=== PATIENT | female | born 1970 | race Caucasian/White ===

== ENCOUNTER 2019-03-30 20:00 | Emergency (ER) | payer SELFPAY ==
[~2019-03-30] VITALS: Ht 170.1 cm; Wt 96.2 kg
[~2019-03-30 20:00] MED LIST: ANAPROX DS550 MG PO; CIPRO500 MG PO; FIORICET 325 MG1 TAB PO; FLAGYL500 MG PO; HYDROCODONE BIT1 T11 PO; KENALOG0.5% TP; MEDROL DOSEPAK4 MG PO; MOTRIN800 MG PO; MULTI VITAMINS1 TAB PO; NKHM; NORFLEX100 MG PO; SKELAXIN800 MG PO; Synthroid,Levo25 MCG PO; VICODIN 5/500 505 MG PO; VISTARIL25 MG PO; ZANTAC150 MG PO; ZOFRAN ODT4 MG SL
[2019-03-30 20:06] VITALS: BP 131/65
[2019-03-30 20:38] LABS: BASO # 0.1 10*3/uL (0.0-0.1); BASO % 0.4 % (0.0-1.0); EOS # 0.1 10*3/uL (0.0-0.4); EOS % 0.8 % (1.0-4.0); HEMATOCRIT 41.9 % (37.0-47.0); HEMOGLOBIN 13.9 g/dl (12.0-16.0); LYMPH # 1.5 10*3/uL (1.3-4.4); LYMPH % 11.8 % (27.0-41.0); MEAN CELL VOLUME 89.9 fl (81.0-99.0); MEAN CORPUSCULAR HGB 29.8 pg (27.0-31.0); MEAN CORPUSCULAR HGB CONC 33.2 g/dl (33.0-37.0); MEAN PLATELET VOLUME 10.8 fl (9.6-12.3); MONO # 0.3 10*3/uL (0.1-1.0); NEUT # 10.5 10*3/uL (2.3-7.9); NEUT % 84.6 % (47.0-73.0); PLATELET COUNT AUTOMATED 218 10*3/uL (130-400); RED BLOOD COUNT 4.66 10*6/uL (4.10-5.10); RED CELL DISTRI WIDTH 13.5 % (0-14.5); WHITE BLOOD COUNT 12.4 10*3/uL (4.8-10.8)
[2019-03-30 20:52] LABS: ALBUMIN 3.7 gm/dl (3.1-4.5); ALKALINE PHOSPHATASE 115 U/L (45-117); BUN 10 mg/dl (7-24); CHLORIDE 105 mmol/L (98-107); CREATININE 0.89 mg/dL (0.55-1.02); LIPASE 106 U/L (73-393); POTASSIUM 3.8 mmol/L (3.5-5.1); SGOT/AST 15 IU/L (3-35); SGPT/ALT 20 U/L (12-78); SODIUM 137 mmol/L (136-145)
[2019-03-30 22:47] LABS: BILIRUBIN NEGATIVE (NEGATIVE); BLOOD NEGATIVE (NEGATIVE); CLARITY CLEAR (CLEAR); COLOR YELLOW (YELLOW); GLUCOSE NEGATIVE (NEGATIVE); KETONE NEGATIVE (NEGATIVE); LEUKO ESTERASE NEGATIVE (NEGATIVE); NITRITE NEGATIVE (NEGATIVE); PH 5.5 (5.0-9.0); UROBILINOGEN 0.2 E.U./dl (0.2-1.0)
[2019-03-30 23:01] LABS: BACTERIA 1+; EPITHELIAL CELLS 0-2
[2019-03-30] MEDS ORDERED: ZOFRAN4 MG PO (23:08)
[2019-03-30] MEDS ORDERED: AUGMENTIN 875875 MG PO (23:08)
[2019-03-30] MEDS ORDERED: TRAMADOL HCL50 MG PO (23:08)
== END 2019-03-30 23:50 | disposition home or self-care (01) ==
LOC: ED
PROVIDERS: Physician Assistant
DX: K57.32 Diverticulitis of large intestine without perforation or abscess without bleeding (principal); Z88.8 Allergy status to other drugs, medicaments and biological substances; Z79.899 Other long term (current) drug therapy; Z79.2 Long term (current) use of antibiotics

== ENCOUNTER 2019-04-01 17:56 | Inpatient (IN) | payer BC ==
[~2019-04-01] VITALS: Ht 167.6 cm; Wt 108.6 kg
--- NOTE | ~2019-04-01 | EKG ---
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
[~2019-04-01 17:56] MED LIST changes: +AUGMENTIN 875875 MG PO; +TRAMADOL HCL50 MG PO; +ZOFRAN4 MG PO
[2019-04-01 17:58] VITALS: BP 91/31
[2019-04-01 18:25] VITALS: BP 102/60
--- NOTE | 2019-04-01 18:49 | NUR ---
NURSE TO NURSE REPORT GIVEN TO THIS RN.
[2019-04-01 19:15] LABS: BASO % 0.7 % (0.0-1.0); EOS # 0.2 10*3/uL (0.0-0.4); EOS % 3.5 % (1.0-4.0); HEMATOCRIT 38.8 % (37.0-47.0); HEMOGLOBIN 12.4 g/dl (12.0-16.0); LYMPH # 1.4 10*3/uL (1.3-4.4); LYMPH % 26.3 % (27.0-41.0); MEAN CELL VOLUME 92.2 fl (81.0-99.0); MEAN CORPUSCULAR HGB 29.5 pg (27.0-31.0); MEAN PLATELET VOLUME 10.7 fl (9.6-12.3); MONO # 0.5 10*3/uL (0.1-1.0); MONO % 9.3 % (3.0-9.0); NEUT # 3.2 10*3/uL (2.3-7.9); NEUT % 59.6 % (47.0-73.0); PLATELET COUNT AUTOMATED 173 10*3/uL (130-400); RED BLOOD COUNT 4.21 10*6/uL (4.10-5.10); RED CELL DISTRI WIDTH 13.3 % (0-14.5); WHITE BLOOD COUNT 5.4 10*3/uL (4.8-10.8)
[2019-04-01 19:31] LABS: ALBUMIN 3.2 gm/dl (3.1-4.5); ALKALINE PHOSPHATASE 124 U/L (45-117); BUN 10 mg/dl (7-24); CHLORIDE 106 mmol/L (98-107); CREATININE 0.72 mg/dL (0.55-1.02); POTASSIUM 3.8 mmol/L (3.5-5.1); SGOT/AST 37 IU/L (3-35); SGPT/ALT 48 U/L (12-78); SODIUM 139 mmol/L (136-145); TOTAL PROTEIN 7.4 gm/dL (6.4-8.2)
[2019-04-01 20:56] LABS: INTERNATIONAL NORM RATIO 0.9 (2.0-3.5)
[2019-04-01 21:12] VITALS: BP 109/75
--- NOTE | 2019-04-01 21:12 | NUR ---
A 48, admitted to , under the services of TOMI Hickman DO with a diagnosis of BACTEREMIA, ACUTE DIVERTICULITIS. Chief complaint is BACTEREMIA, ACUTE DIVERTICULITIS. Patient arrived via stretcher from ER. Monitor applied. Initial assessment completed. Vital signs taken and recorded. TOMI HICKMAN DO notified of admission to the unit. Orders received. See assessment for past medical history, medications and allergies. Patient and/or family oriented to unit. [address] visitation policy reviewed. Clothing/patient valuable form completed. ETHEL DUVAL
[2019-04-01 21:14] VITALS: BP 108/63
[2019-04-02] VITALS: BP 100/77
--- NOTE | 2019-04-02 00:55 | NUR ---
PATIENT THROWING FREQUENT PVCS. STAT EKG ORDERED. NOTIFIED THE RESIDENT.
[2019-04-02 01:28] LABS: TROPONIN I < 0.015 ng/ml (<0.045)
[2019-04-02 06:58] LABS: BASO % 0.5 % (0.0-1.0); EOS # 0.3 10*3/uL (0.0-0.4); EOS % 5.4 % (1.0-4.0); HEMATOCRIT 35.6 % (37.0-47.0); HEMOGLOBIN 11.2 g/dl (12.0-16.0); LYMPH # 1.4 10*3/uL (1.3-4.4); MEAN CELL VOLUME 93.4 fl (81.0-99.0); MEAN CORPUSCULAR HGB 29.4 pg (27.0-31.0); MEAN CORPUSCULAR HGB CONC 31.5 g/dl (33.0-37.0); MEAN PLATELET VOLUME 10.9 fl (9.6-12.3); MONO # 0.4 10*3/uL (0.1-1.0); NEUT # 3.4 10*3/uL (2.3-7.9); NEUT % 60.7 % (47.0-73.0); PLATELET COUNT AUTOMATED 163 10*3/uL (130-400); RED BLOOD COUNT 3.81 10*6/uL (4.10-5.10); RED CELL DISTRI WIDTH 13.5 % (0-14.5); WHITE BLOOD COUNT 5.5 10*3/uL (4.8-10.8)
[2019-04-02 07:32] LABS: ALBUMIN 2.7 gm/dl (3.1-4.5); ALKALINE PHOSPHATASE 121 U/L (45-117); BUN 13 mg/dl (7-24); CHLORIDE 113 mmol/L (98-107); CHOLESTEROL 202 mg/dL (<200); CREATININE 0.72 mg/dL (0.55-1.02); HDL CHOLESTEROL 31 mg/dl (40-60); LDL CHOLESTEROL 125 mg/dL (9-159); PHOSPHOROUS 3.6 mg/dL (2.5-4.9); POTASSIUM 4.2 mmol/L (3.5-5.1); SGOT/AST 56 IU/L (3-35); SGPT/ALT 62 U/L (12-78); SODIUM 142 mmol/L (136-145); TOTAL PROTEIN 6.3 gm/dL (6.4-8.2); TRIGLYCERIDES 230 mg/dl (<150); VLDL CHOLESTEROL 46 mg/dL (6-40)
[2019-04-02 07:51] LABS: VITAMIN D, 25-HYDROXY 28.6 ng/mL (30-100)
[2019-04-02 08:00] VITALS: BP 110/70
--- NOTE | 2019-04-02 09:00 | NUR ---
Checkering Machine Adjuster in to talk to patient. Patient states lives at home with family. There are few steps in the home. Physician: justin mann [facility]acy: [facility] [place] [facility]: none Patient's level of ADLs: INDEPENDENT Patient has working utilities: all working DME: none Follow-up physician's appointment after d/c: will be made by hospitalist nurse director upon discharge Does patient want to access PORTAL?: no Discharge plan discussed with patient, she lives at home, is independent in adls and ambulation, patient states she will return home when medically stable and denies any home needs. RAJI ARVIZU
--- NOTE | 2019-04-02 09:02 | NUR ---
PT MEDICATED WITH ZOFRAN FOR C/O NAUSEA.
[2019-04-02 12:00] VITALS: BP 101/52
--- NOTE | 2019-04-02 12:21 | NUR ---
DR ANTONIO NOTIFIED OF NEW CONSULT ORDER.
[2019-04-02 16:00] VITALS: BP 115/68
--- NOTE | 2019-04-02 17:07 | NUR ---
& AMADO CRIMPING PRESS OPERATOR NOTIFIED OF NEW SKIN TEAR TO LEFT AC AFTER PT PULLED OFF PAPER TAPE. SAID HE WOULD PUT ORDERS IN. SEE WOUND ASSESSMENT/ORDERS.
[2019-04-02 20:00] VITALS: BP 105/56
--- NOTE | 2019-04-02 20:41 | NUR ---
NO VOICED COMPLAINTS. VISITOR AT BEDSIDE. CALL LIGHT IN REACH. IVF INFUSING WITH EASE.
--- NOTE | 2019-04-02 23:30 | NUR ---
ASSUMED CARE FOR THIS PT AT THIS TIME. PT RESTING QUIETLY IN BED. NO C/O VOICED. IVF INFUSING ORDERED. CALL LIGHT IN REACH.
[2019-04-03] VITALS: BP 104/60
--- NOTE | 2019-04-03 02:34 | NUR ---
PT MEDICATED W/NORCO FOR C/O H/A AND ZOFRAN FOR C/O NAUSEA. RESTING QUIETLY IN BED.
--- NOTE | 2019-04-03 03:30 | NUR ---
PT STATES THAT NORCO AND ZOFRAN WERE EFFECTIVE. NO FURHTER C/O VOICED.
--- NOTE | 2019-04-03 03:40 | NUR ---
24 HR chart check completed.
[2019-04-03 07:06] LABS: BASO % 0.6 % (0.0-1.0); EOS # 0.3 10*3/uL (0.0-0.4); EOS % 5.8 % (1.0-4.0); HEMATOCRIT 33.8 % (37.0-47.0); HEMOGLOBIN 10.7 g/dl (12.0-16.0); LYMPH # 2.1 10*3/uL (1.3-4.4); LYMPH % 39.7 % (27.0-41.0); MEAN CELL VOLUME 92.6 fl (81.0-99.0); MEAN CORPUSCULAR HGB 29.3 pg (27.0-31.0); MEAN CORPUSCULAR HGB CONC 31.7 g/dl (33.0-37.0); MEAN PLATELET VOLUME 10.9 fl (9.6-12.3); MONO # 0.3 10*3/uL (0.1-1.0); MONO % 6.3 % (3.0-9.0); NEUT # 2.5 10*3/uL (2.3-7.9); PLATELET COUNT AUTOMATED 173 10*3/uL (130-400); RED BLOOD COUNT 3.65 10*6/uL (4.10-5.10); RED CELL DISTRI WIDTH 13.5 % (0-14.5); WHITE BLOOD COUNT 5.4 10*3/uL (4.8-10.8)
[2019-04-03 07:16] LABS: ALBUMIN 2.8 gm/dl (3.1-4.5); BUN 9 mg/dl (7-24); CHLORIDE 110 mmol/L (98-107); POTASSIUM 3.9 mmol/L (3.5-5.1); SODIUM 141 mmol/L (136-145)
[2019-04-03 07:20] LABS: ALKALINE PHOSPHATASE 121 U/L (45-117); CREATININE 0.69 mg/dL (0.55-1.02); SGOT/AST 34 IU/L (3-35); SGPT/ALT 64 U/L (12-78); TOTAL PROTEIN 6.3 gm/dL (6.4-8.2)
[2019-04-03 08:00] VITALS: BP 120/68
[2019-04-03] MEDS ORDERED: VITAMIN D32000 UNI1 PO (11:29)
[2019-04-03] MEDS ORDERED: LIPITOR10 MG PO (11:30)
[2019-04-03] MEDS ORDERED: AUGMENTIN 875875 MG PO (11:32)
--- NOTE | 2019-04-03 11:40 | NUR ---
MEDICATED WITH PRN PO TYLENOL FOR HEADACHE.
--- NOTE | 2019-04-03 12:29 | NUR ---
Discharge instructions reviewed with patient. Patient receptive and verbalizes understanding. Follow-up care arranged. Written instructions given to patient. PATIENT AWAITING RIDE HOME WITH SON. SAIRA MAYA
--- NOTE | 2019-04-03 12:45 | NUR ---
PATIENT DISCHARGED TO [facility], AMBULATORY, FOR TRANSPORT HOME BY PRIVATE VEHICLE WITH HER SON.
== END 2019-04-03 12:14 | disposition home or self-care (01) | DRG 392 ==
LOC: ED 17:56 → 5E 20:18 → EDHOLD 20:18 → 5E 20:43
PROVIDERS: Internal Medicine; Physician Assistant; Student in an Organized Health Care Education/Training Program; ADMIT Internal Medicine
DX: K57.32 Diverticulitis of large intestine without perforation or abscess without bleeding (principal); D72.810 Lymphocytopenia; D72.821 Monocytosis (symptomatic); K76.0 Fatty (change of) liver, not elsewhere classified; E78.5 Hyperlipidemia, unspecified; E66.9 Obesity, unspecified; Z87.891 Personal history of nicotine dependence; Z98.51 Tubal ligation status; Z79.899 Other long term (current) drug therapy; Z68.38 Body mass index [BMI] 38.0-38.9, adult; Z88.8 Allergy status to other drugs, medicaments and biological substances; Z83.3 Family history of diabetes mellitus; Z80.8 Family history of malignant neoplasm of other organs or systems; Z82.3 Family history of stroke; Z82.49 Family history of ischemic heart disease and other diseases of the circulatory system

== ENCOUNTER → 2019-09-17 | Outpatient (CLI) | payer BC ==
[~2019-09-17] MED LIST changes: +LIPITOR10 MG PO; +VITAMIN D32000 UNI1 PO
== END | disposition home or self-care (01) ==
LOC: CARD 07:42
DX: I25.2 Old myocardial infarction (principal); R00.2 Palpitations; I49.9 Cardiac arrhythmia, unspecified

== ENCOUNTER → 2019-11-16 | Outpatient (CLI) | payer BC | END | disposition home or self-care (01) | LOC: CARD 11:28 | DX: R00.2 Palpitations (principal) ==

== ENCOUNTER → 2019-12-31 | Outpatient (CLI) | payer BC ==
[2020-01-01 08:08] LABS: FOLLICLE STIMULATING HORMONE 43.4 mIU/mL (.); LUTEINIZING HORMONE 29.4 mIU/mL (.)
== END | disposition home or self-care (01) ==
LOC: US 12-20 11:00
PROVIDERS: Obstetrics & Gynecology
DX: N95.0 Postmenopausal bleeding (principal)

== ENCOUNTER 2020-02-11 15:40 | Observation (INO) | payer BC ==
[~2020-02-11] VITALS: Ht 170.2 cm; Wt 108.9 kg
[2020-02-11 15:46] VITALS: BP 135/75
[2020-02-11 16:09] LABS: BASO % 0.4 % (0.0-1.0); EOS # 0.1 10*3/uL (0.0-0.4); HEMATOCRIT 41.2 % (37.0-47.0); LYMPH # 2.4 10*3/uL (1.3-4.4); LYMPH % 22.9 % (27.0-41.0); MEAN CELL VOLUME 89.4 fl (81.0-99.0); MEAN CORPUSCULAR HGB 29.5 pg (27.0-31.0); MEAN PLATELET VOLUME 10.3 fl (9.6-12.3); MONO # 0.4 10*3/uL (0.1-1.0); MONO % 4.1 % (3.0-9.0); NEUT # 7.5 10*3/uL (2.3-7.9); NEUT % 71.3 % (47.0-73.0); PLATELET COUNT AUTOMATED 251 10*3/uL (130-400); RED BLOOD COUNT 4.61 10*6/uL (4.10-5.10); RED CELL DISTRI WIDTH 12.6 % (0-14.5); WHITE BLOOD COUNT 10.5 10*3/uL (4.8-10.8)
[2020-02-11 16:19] VITALS: BP 122/62
[2020-02-11 16:20] LABS: ACT PARTIAL THROMBO TIME 27.5 SECONDS (20.0-32.1)
[2020-02-11 16:25] LABS: ALBUMIN 3.9 gm/dl (3.1-4.5); ALKALINE PHOSPHATASE 125 U/L (45-117); BUN 18 mg/dl (7-24); CHLORIDE 104 mmol/L (98-107); POTASSIUM 3.7 mmol/L (3.5-5.1); SGOT/AST 22 IU/L (3-35); SGPT/ALT 26 U/L (12-78); SODIUM 136 mmol/L (136-145); TOTAL PROTEIN 8.2 gm/dL (6.4-8.2)
[2020-02-11 16:26] LABS: TROPONIN I < 0.015 ng/ml (<0.045)
[2020-02-11 16:30] VITALS: BP 122/62
[2020-02-11 17:00] VITALS: BP 113/60
[2020-02-11 17:30] VITALS: BP 107/51
[2020-02-11 18:15] VITALS: BP 115/60
[2020-02-11] MEDS ORDERED: LEXAPRO10 MG PO (18:18)
[2020-02-11] MEDS ORDERED: LISINOPRIL10 M1 PO (18:19)
[2020-02-11] MEDS ORDERED: PRILOSEC20 M1 PO (18:19)
[2020-02-11] MEDS ORDERED: ZINC50 M4 PO (18:20)
[2020-02-11] MEDS ORDERED: VITAMIN C500 M7 PO (18:20)
[2020-02-11] MEDS ORDERED: ASPIRIN CHEWABL81 MG PO (18:21)
[2020-02-11] MEDS ORDERED: SUNMARK MAGNES250 MG PO (18:21)
[2020-02-12] VITALS: BP 109/65
[2020-02-12 06:06] LABS: BASO % 0.4 % (0.0-1.0); EOS # 0.2 10*3/uL (0.0-0.4); HEMATOCRIT 39.8 % (37.0-47.0); LYMPH # 3.4 10*3/uL (1.3-4.4); LYMPH % 37.2 % (27.0-41.0); MEAN CELL VOLUME 90.7 fl (81.0-99.0); MEAN CORPUSCULAR HGB 29.4 pg (27.0-31.0); MEAN CORPUSCULAR HGB CONC 32.4 g/dl (33.0-37.0); MEAN PLATELET VOLUME 10.6 fl (9.6-12.3); MONO # 0.5 10*3/uL (0.1-1.0); MONO % 5.8 % (3.0-9.0); NEUT % 54.3 % (47.0-73.0); PLATELET COUNT AUTOMATED 243 10*3/uL (130-400); RED BLOOD COUNT 4.39 10*6/uL (4.10-5.10); RED CELL DISTRI WIDTH 12.6 % (0-14.5); WHITE BLOOD COUNT 9.1 10*3/uL (4.8-10.8)
[2020-02-12 06:27] LABS: ALBUMIN 3.6 gm/dl (3.1-4.5); BUN 19 mg/dl (7-24); CHLORIDE 105 mmol/L (98-107); CHOLESTEROL 174 mg/dL (<200); CREATININE 0.78 mg/dL (0.55-1.02); POTASSIUM 3.8 mmol/L (3.5-5.1); SGOT/AST 12 IU/L (3-35); SGPT/ALT 22 U/L (12-78); SODIUM 138 mmol/L (136-145)
[2020-02-12 06:33] LABS: ALKALINE PHOSPHATASE 115 U/L (45-117); FREE T4 1.04 ng/dl (0.76-1.46); HDL CHOLESTEROL 42 mg/dl (40-60); LDL CHOLESTEROL 86 mg/dL (9-159); TOTAL PROTEIN 7.5 gm/dL (6.4-8.2); TRIGLYCERIDES 229 mg/dl (<150); VLDL CHOLESTEROL 46 mg/dL (6-40)
[2020-02-12 06:51] LABS: ACT PARTIAL THROMBO TIME 28.9 SECONDS (20.0-32.1)
[2020-02-12 07:28] LABS: VITAMIN D, 25-HYDROXY 43.2 ng/mL (30-100)
[2020-02-12] MEDS ORDERED: LIPITOR20 MG PO (10:33)
[2020-02-12 12:00] VITALS: BP 105/59
[2020-02-12 16:00] VITALS: BP 110/66
[2020-02-12 20:00] VITALS: BP 102/66
[2020-02-13] VITALS: BP 97/55
[2020-02-13 08:00] VITALS: BP 132/76
[2020-02-13 12:00] VITALS: BP 106/72
[2020-02-13 16:00] VITALS: BP 103/61
[2020-02-13 20:00] VITALS: BP 116/65
[2020-02-14] VITALS: BP 112/47
[2020-02-14 10:35] VITALS: BP 122/60
== END 2020-02-14 18:00 | disposition home or self-care (01) ==
LOC: ED 15:40 → EDHOLD 17:12 → 4E 17:48
PROVIDERS: Emergency Medicine; Hospitalist; ADMIT Internal Medicine
DX: R07.89 Other chest pain (principal); E78.5 Hyperlipidemia, unspecified; E83.41 Hypermagnesemia; R00.1 Bradycardia, unspecified; R73.9 Hyperglycemia, unspecified; E66.9 Obesity, unspecified; R42 Dizziness and giddiness; F41.9 Anxiety disorder, unspecified; Z87.891 Personal history of nicotine dependence

== ENCOUNTER → 2020-09-18 | Outpatient (CLI) | payer BC ==
[~2020-09-18] MED LIST changes: +ASPIRIN CHEWABL81 MG PO; +LEXAPRO10 MG PO; +LIPITOR20 MG PO; +LISINOPRIL10 M1 PO; +PRILOSEC20 M1 PO; +SUNMARK MAGNES250 MG PO; +VITAMIN C500 M7 PO; +ZINC50 M4 PO
== END | disposition home or self-care (01) ==
LOC: COVID19 13:18
PROVIDERS: ATTEND Internal Medicine Gastroenterology
DX: Z11.52 Encounter for screening for COVID-19 (principal)

== ENCOUNTER → 2020-11-06 | Outpatient (CLI) | payer BC | END | disposition home or self-care (01) | LOC: MAMMO 09:26 | PROVIDERS: ATTEND Obstetrics & Gynecology | DX: Z12.31 Encounter for screening mammogram for malignant neoplasm of breast (principal) ==

== ENCOUNTER → 2020-11-22 | Outpatient (CLI) | payer BC | END | disposition home or self-care (01) | LOC: US 14:58 | PROVIDERS: ATTEND Nurse Practitioner Family | DX: M51.36 Other intervertebral disc degeneration, lumbar region (principal); M51.37 Other intervertebral disc degeneration, lumbosacral region; M25.78 Osteophyte, vertebrae ==

== ENCOUNTER 2021-02-24 13:08 | Emergency (ER) | payer BC ==
[~2021-02-24] VITALS: Ht 167.6 cm; Wt 113.4 kg
[2021-02-24 13:22] VITALS: BP 131/81
[2021-02-24 14:00] LABS: BASO % 0.3 % (0.0-1.0); EOS # 0.2 10*3/uL (0.0-0.4); EOS % 1.9 % (1.0-4.0); HEMATOCRIT 39.9 % (37.0-47.0); LYMPH # 2.4 10*3/uL (1.3-4.4); LYMPH % 27.3 % (27.0-41.0); MEAN CELL VOLUME 90.9 fl (81.0-99.0); MEAN CORPUSCULAR HGB 28.5 pg (27.0-31.0); MEAN CORPUSCULAR HGB CONC 31.3 g/dl (33.0-37.0); MEAN PLATELET VOLUME 10.5 fl (9.6-12.3); MONO # 0.5 10*3/uL (0.1-1.0); NEUT # 5.7 10*3/uL (2.3-7.9); NEUT % 63.7 % (47.0-73.0); PLATELET COUNT AUTOMATED 242 10*3/uL (130-400); RED BLOOD COUNT 4.39 10*6/uL (4.10-5.10); RED CELL DISTRI WIDTH 13.2 % (0-14.5); WHITE BLOOD COUNT 8.9 10*3/uL (4.8-10.8)
[2021-02-24 14:16] LABS: ALBUMIN 3.5 gm/dl (3.1-4.5); ALKALINE PHOSPHATASE 124 U/L (45-117); BUN 10 mg/dl (7-24); CHLORIDE 109 mmol/L (98-107); CREATININE 0.76 mg/dL (0.55-1.02); POTASSIUM 4.6 mmol/L (3.5-5.1); SGOT/AST 30 IU/L (3-35); SGPT/ALT 31 U/L (12-78); SODIUM 141 mmol/L (136-145); TOTAL PROTEIN 7.6 gm/dL (6.4-8.2)
[2021-02-24 15:15] LABS: BILIRUBIN Negative (Negative); BLOOD Negative (Negative); CLARITY Clear (Clear); COLOR Yellow (Yellow); GLUCOSE Negative (Negative); KETONE Negative (Negative); LEUKO ESTERASE 2+ (Negative); NITRITE Negative (Negative); PH 7.5 (4.5-8.0); SPECIFIC GRAVITY <= 1.005 (1.001-1.030); UROBILINOGEN 0.2 E.U./dl (0.0-1.0)
[2021-02-24 15:41] LABS: BACTERIA 1+; EPITHELIAL CELLS 41-50; RBC 0-2 rbc/hpf (0-2)
[2021-02-24] MEDS ORDERED: AUGMENTIN 875-875 MG PO (15:49)
== END 2021-02-24 16:18 | disposition home or self-care (01) ==
LOC: ED 13:08
PROVIDERS: Student in an Organized Health Care Education/Training Program
DX: N39.0 Urinary tract infection, site not specified (principal); N20.0 Calculus of kidney; Z88.8 Allergy status to other drugs, medicaments and biological substances; Z79.899 Other long term (current) drug therapy; Z79.82 Long term (current) use of aspirin; Z98.51 Tubal ligation status; Z87.891 Personal history of nicotine dependence

== ENCOUNTER → 2021-03-06 | Outpatient (CLI) | payer BC ==
[~2021-03-06] MED LIST changes: +AUGMENTIN 875-875 MG PO
== END | disposition home or self-care (01) ==
LOC: CT 00:09
PROVIDERS: ATTEND Nurse Practitioner Family
DX: K76.0 Fatty (change of) liver, not elsewhere classified (principal); N20.0 Calculus of kidney; K57.30 Diverticulosis of large intestine without perforation or abscess without bleeding

== ENCOUNTER → 2021-06-20 | Outpatient (CLI) | payer BC ==
[~2021-06-20] MED LIST changes: +FLOMAX0.4 MG PO; +Motrin,Rufen800 MG PO; +PERCOCET 5-3251 EACH PO
== END | disposition home or self-care (01) ==
LOC: RAD 13:56
PROVIDERS: ATTEND Urology
DX: R10.9 Unspecified abdominal pain (principal); R07.81 Pleurodynia

== ENCOUNTER 2021-06-25 07:31 | Emergency (ER) | payer BC ==
[~2021-06-25] VITALS: Ht 170.1 cm; Wt 108.9 kg
[~2021-06-25 07:31] MED LIST changes: -FLOMAX0.4 MG PO; -Motrin,Rufen800 MG PO; -PERCOCET 5-3251 EACH PO
[2021-06-25 08:41] LABS: BASO % 0.3 % (0.0-1.0); EOS # 0.1 10*3/uL (0.0-0.4); EOS % 0.7 % (1.0-4.0); LYMPH % 21.7 % (27.0-41.0); MEAN CELL VOLUME 91.1 fl (81.0-99.0); MEAN CORPUSCULAR HGB CONC 31.8 g/dl (33.0-37.0); MEAN PLATELET VOLUME 10.6 fl (9.6-12.3); MONO # 0.4 10*3/uL (0.1-1.0); MONO % 4.1 % (3.0-9.0); NEUT # 6.6 10*3/uL (2.3-7.9); NEUT % 72.5 % (47.0-73.0); PLATELET COUNT AUTOMATED 196 10*3/uL (130-400); RED BLOOD COUNT 4.28 10*6/uL (4.10-5.10); RED CELL DISTRI WIDTH 12.8 % (0-14.5); WHITE BLOOD COUNT 9.1 10*3/uL (4.8-10.8)
[2021-06-25 08:59] LABS: ALBUMIN 3.4 gm/dl (3.1-4.5); ALKALINE PHOSPHATASE 113 U/L (45-117); BUN 13 mg/dl (7-24); CHLORIDE 109 mmol/L (98-107); CREATININE 0.86 mg/dL (0.55-1.02); LIPASE 102 U/L (73-393); POTASSIUM 3.6 mmol/L (3.5-5.1); SGOT/AST 11 IU/L (3-35); SGPT/ALT 25 U/L (12-78); SODIUM 141 mmol/L (136-145); TOTAL PROTEIN 7.4 gm/dL (6.4-8.2)
[2021-06-25 10:30] VITALS: BP 110/80
[2021-06-25 11:30] LABS: BILIRUBIN Negative (Negative); BLOOD 3+ (Negative); CLARITY Clear (Clear); COLOR Yellow (Yellow); GLUCOSE Negative (Negative); KETONE Negative (Negative); LEUKO ESTERASE Trace (Negative); NITRITE Negative (Negative); SPECIFIC GRAVITY 1.015 (1.001-1.030); UROBILINOGEN 0.2 E.U./dl (0.0-1.0)
[2021-06-25 11:42] LABS: BACTERIA 1+; MUCOUS 2+; RBC TNTC rbc/hpf (0-2)
[2021-06-25] MEDS ORDERED: Motrin,Rufen800 MG PO (11:55)
[2021-06-25] MEDS ORDERED: ZOFRAN4 MG PO (11:55)
[2021-06-25] MEDS ORDERED: PERCOCET 5-3251 EACH PO (11:55)
[2021-06-25] MEDS ORDERED: FLOMAX0.4 MG PO (11:55)
== END 2021-06-25 11:59 | disposition home or self-care (01) ==
LOC: ED 07:31
PROVIDERS: Emergency Medicine
DX: N20.1 Calculus of ureter (principal); Z88.8 Allergy status to other drugs, medicaments and biological substances; Z79.899 Other long term (current) drug therapy; Z87.891 Personal history of nicotine dependence

== ENCOUNTER → 2021-12-12 | Outpatient (CLI) | payer BC, OTHER ==
[~2021-12-12] MED LIST changes: +FLOMAX0.4 MG PO; +Motrin,Rufen800 MG PO; +PERCOCET 5-3251 EACH PO
[2021-12-12 07:41] LABS: BASO % 0.3 % (0.0-1.0); EOS # 0.2 10*3/uL (0.0-0.4); EOS % 2.7 % (1.0-4.0); HEMATOCRIT 39.5 % (37.0-47.0); LYMPH % 39.6 % (27.0-41.0); MEAN CELL VOLUME 90.8 fl (81.0-99.0); MEAN CORPUSCULAR HGB 28.7 pg (27.0-31.0); MEAN CORPUSCULAR HGB CONC 31.6 g/dl (33.0-37.0); MEAN PLATELET VOLUME 9.8 fl (9.6-12.3); MONO # 0.4 10*3/uL (0.1-1.0); MONO % 5.4 % (3.0-9.0); NEUT # 3.9 10*3/uL (2.3-7.9); NEUT % 51.6 % (47.0-73.0); PLATELET COUNT AUTOMATED 232 10*3/uL (130-400); RED BLOOD COUNT 4.35 10*6/uL (4.10-5.10); RED CELL DISTRI WIDTH 12.9 % (0-14.5); WHITE BLOOD COUNT 7.5 10*3/uL (4.8-10.8)
[2021-12-12 08:51] LABS: BUN 12 mg/dl (7-24); CHLORIDE 108 mmol/L (98-107); CHOLESTEROL 171 mg/dL (<200); CREATININE 0.75 mg/dL (0.55-1.02); POTASSIUM 4.2 mmol/L (3.5-5.1); SGOT/AST 13 IU/L (3-35); SGPT/ALT 24 U/L (12-78); SODIUM 140 mmol/L (136-145); TRIGLYCERIDES 142 mg/dl (<150)
[2021-12-12 08:52] LABS: ALKALINE PHOSPHATASE 87 U/L (45-117); LDL CHOLESTEROL 91 mg/dL (9-159); TOTAL PROTEIN 6.7 gm/dL (6.4-8.2)
== END | disposition home or self-care (01) ==
LOC: LAB 07:16
PROVIDERS: ATTEND Nurse Practitioner Family
DX: E78.2 Mixed hyperlipidemia (principal)

== ENCOUNTER → 2022-01-28 | Day surgery (SDC) | payer BC, OTHER ==
[~2022-01-28] VITALS: Ht 167.6 cm; Wt 111.1 kg
[~2022-01-28] MED LIST changes: +DAILY VALUE1 EACH PO; +PANTOPRAZOLE SO40 MG PO
[2022-01-28 08:05] VITALS: BP 117/69
[2022-01-28 09:08] VITALS: BP 104/63
[2022-01-28 09:23] VITALS: BP 109/64
[2022-01-28 09:37] VITALS: BP 108/69
[2022-01-28 10:40] VITALS: BP 104/63
== END | disposition home or self-care (01) ==
LOC: SDC 01-24 11:00
PROVIDERS: ATTEND Surgery
DX: K21.9 Gastro-esophageal reflux disease without esophagitis (principal); K29.50 Unspecified chronic gastritis without bleeding; I25.2 Old myocardial infarction; E78.00 Pure hypercholesterolemia, unspecified; Z86.73 Personal history of transient ischemic attack (TIA), and cerebral infarction without residual deficits; Z88.1 Allergy status to other antibiotic agents

== ENCOUNTER → 2022-02-12 | Outpatient (CLI) | payer BC, OTHER | END | disposition home or self-care (01) | LOC: US 01-10 07:30 | PROVIDERS: ATTEND Nurse Practitioner Family | DX: I83.91 Asymptomatic varicose veins of right lower extremity (principal); M76.61 Achilles tendinitis, right leg ==

== ENCOUNTER → 2022-05-28 | Outpatient (CLI) | payer BC, OTHER ==
[2022-05-29 08:07] LABS: FOLLICLE STIMULATING HORMONE 18.5 mIU/mL (.)
== END | disposition home or self-care (01) ==
LOC: LAB 07:17
PROVIDERS: ATTEND Nurse Practitioner Women's Health
DX: N95.0 Postmenopausal bleeding (principal); R10.2 Pelvic and perineal pain

== ENCOUNTER → 2022-06-05 | Outpatient (CLI) | payer BC, OTHER | END | disposition home or self-care (01) | LOC: CARD 00:02 | PROVIDERS: ATTEND Internal Medicine | DX: R06.09 Other forms of dyspnea (principal) ==

== ENCOUNTER → 2023-03-05 | Outpatient (CLI) | payer BC, OTHER | END | disposition home or self-care (01) | LOC: MAMMO 02:20 | PROVIDERS: ATTEND Nurse Practitioner Women's Health | DX: Z12.31 Encounter for screening mammogram for malignant neoplasm of breast (principal) ==

== ENCOUNTER → 2023-03-11 | Outpatient (CLI) | payer BC, OTHER ==
[2023-03-11 07:19] LABS: BASO % 0.3 % (0.0-1.0); EOS # 0.1 10*3/uL (0.0-0.4); EOS % 1.7 % (1.0-4.0); HEMATOCRIT 40.3 % (37.0-47.0); LYMPH # 2.2 10*3/uL (1.3-4.4); LYMPH % 33.9 % (27.0-41.0); MEAN CELL VOLUME 91.8 fl (81.0-99.0); MEAN CORPUSCULAR HGB 30.3 pg (27.0-31.0); MEAN PLATELET VOLUME 10.2 fl (9.6-12.3); MONO # 0.4 10*3/uL (0.1-1.0); MONO % 5.3 % (3.0-9.0); NEUT # 3.9 10*3/uL (2.3-7.9); NEUT % 58.3 % (47.0-73.0); PLATELET COUNT AUTOMATED 200 10*3/uL (130-400); RED BLOOD COUNT 4.39 10*6/uL (4.10-5.10); RED CELL DISTRI WIDTH 12.7 % (0-14.5); WHITE BLOOD COUNT 6.6 10*3/uL (4.8-10.8)
[2023-03-11 07:55] LABS: VITAMIN D, 25-HYDROXY 57.2 ng/mL (30-100)
[2023-03-11 07:58] LABS: ALKALINE PHOSPHATASE 109 U/L (46-116); BUN 13 mg/dl (9-23); CHLORIDE 107 mmol/L (98-107); CHOLESTEROL 173 mg/dL (<200); LDL CHOLESTEROL 82 mg/dL (9-159); SGPT/ALT 13 U/L (10-49); TOTAL PROTEIN 7.1 gm/dL (6.0-8.0); TRIGLYCERIDES 180 mg/dl (<150)
== END | disposition home or self-care (01) ==
LOC: LAB 07:03
PROVIDERS: ATTEND Nurse Practitioner Family
DX: H93.19 Tinnitus, unspecified ear (principal); R51.9 Headache, unspecified; G47.30 Sleep apnea, unspecified; Z86.73 Personal history of transient ischemic attack (TIA), and cerebral infarction without residual deficits; Z82.49 Family history of ischemic heart disease and other diseases of the circulatory system

== ENCOUNTER → 2023-03-12 | Outpatient (CLI) | payer BC, OTHER | END | disposition home or self-care (01) | LOC: CARD 13:28 | PROVIDERS: ATTEND Nurse Practitioner Family | DX: G47.30 Sleep apnea, unspecified (principal); H93.19 Tinnitus, unspecified ear; R51.9 Headache, unspecified; Z82.49 Family history of ischemic heart disease and other diseases of the circulatory system; Z86.73 Personal history of transient ischemic attack (TIA), and cerebral infarction without residual deficits ==

== ENCOUNTER → 2023-05-09 | Outpatient (CLI) | payer BC, OTHER | END | disposition home or self-care (01) | LOC: MRI 07:08 | PROVIDERS: ATTEND Nurse Practitioner Family | DX: I67.82 Cerebral ischemia (principal); Z82.49 Family history of ischemic heart disease and other diseases of the circulatory system; H93.19 Tinnitus, unspecified ear; Z86.73 Personal history of transient ischemic attack (TIA), and cerebral infarction without residual deficits ==

== ENCOUNTER → 2023-08-27 | Outpatient (CLI) | payer BC ==
[2023-08-27 07:53] LABS: BASO % 0.6 % (0.0-1.0); EOS # 0.1 10*3/uL (0.0-0.4); EOS % 2.1 % (1.0-4.0); HEMATOCRIT 41.1 % (37.0-47.0); LYMPH # 2.4 10*3/uL (1.3-4.4); LYMPH % 38.2 % (27.0-41.0); MEAN CELL VOLUME 92.8 fl (81.0-99.0); MEAN CORPUSCULAR HGB 29.6 pg (27.0-31.0); MEAN CORPUSCULAR HGB CONC 31.9 g/dl (33.0-37.0); MEAN PLATELET VOLUME 10.2 fl (9.6-12.3); MONO # 0.4 10*3/uL (0.1-1.0); NEUT # 3.3 10*3/uL (2.3-7.9); NEUT % 52.9 % (47.0-73.0); PLATELET COUNT AUTOMATED 226 10*3/uL (130-400); RED BLOOD COUNT 4.43 10*6/uL (4.10-5.10); RED CELL DISTRI WIDTH 12.7 % (0-14.5); WHITE BLOOD COUNT 6.2 10*3/uL (4.8-10.8)
[2023-08-27 08:28] LABS: ALKALINE PHOSPHATASE 110 U/L (46-116); BUN 8 mg/dl (9-23); CHLORIDE 108 mmol/L (98-107); CHOLESTEROL 171 mg/dL (<200); LDL CHOLESTEROL 82 mg/dL (9-159); POTASSIUM 4.1 mmol/L (3.4-5.1); SGPT/ALT 11 U/L (5-49); TOTAL PROTEIN 6.9 gm/dL (6.0-8.0); TRIGLYCERIDES 164 mg/dl (<150)
== END | disposition home or self-care (01) ==
LOC: LAB 07:04
PROVIDERS: ATTEND Nurse Practitioner Family
DX: E78.2 Mixed hyperlipidemia (principal); F41.9 Anxiety disorder, unspecified; F43.9 Reaction to severe stress, unspecified

== ENCOUNTER → 2023-11-11 | Outpatient (CLI) | payer OTHER | END | disposition home or self-care (01) | LOC: LAB 07:22 | PROVIDERS: ATTEND Nurse Practitioner Family | DX: F41.1 Generalized anxiety disorder (principal); E66.9 Obesity, unspecified; Z78.0 Asymptomatic menopausal state ==

== ENCOUNTER → 2023-11-19 | Outpatient (CLI) | payer OTHER ==
[2023-11-20 13:07] LABS: ANTI-DSDNA ANTIBODIES <1 IU/mL (0-9); ANTI-RNP ANTIBODIES 2.5 AI (0.0-0.9); ANTICHROMATIN ANTIBODIES <0.2 AI (0.0-0.9); ANTISCLERODERMA-70 AB <0.2 AI (0.0-0.9); SJOGREN ANTI-SS-A <0.2 AI (0.0-0.9); SJOREN AB, ANTI-SS-B <0.2 AI (0.0-0.9)
== END ==
LOC: LAB 11:34
PROVIDERS: ATTEND Nurse Practitioner Family
DX: R76.8 Other specified abnormal immunological findings in serum (principal)

== ENCOUNTER → 2024-02-19 | Outpatient (CLI) | payer OTHER ==
[2024-02-19 07:25] LABS: BASO % 0.5 % (0.0-1.0); EOS # 0.1 10*3/uL (0.0-0.4); EOS % 1.9 % (1.0-4.0); HEMATOCRIT 38.7 % (37.0-47.0); LYMPH # 2.2 10*3/uL (1.3-4.4); LYMPH % 33.9 % (27.0-41.0); MEAN CELL VOLUME 91.1 fl (81.0-99.0); MEAN CORPUSCULAR HGB 30.8 pg (27.0-31.0); MEAN CORPUSCULAR HGB CONC 33.9 g/dl (33.0-37.0); MEAN PLATELET VOLUME 10.5 fl (9.6-12.3); MONO # 0.4 10*3/uL (0.1-1.0); MONO % 6.4 % (3.0-9.0); NEUT # 3.6 10*3/uL (2.3-7.9); NEUT % 56.8 % (47.0-73.0); PLATELET COUNT AUTOMATED 201 10*3/uL (130-400); RED BLOOD COUNT 4.25 10*6/uL (4.10-5.10); RED CELL DISTRI WIDTH 12.8 % (0-14.5); WHITE BLOOD COUNT 6.4 10*3/uL (4.8-10.8)
[2024-02-19 07:49] LABS: ALKALINE PHOSPHATASE 122 U/L (46-116); BUN 12 mg/dl (9-23); CHLORIDE 106 mmol/L (98-107); CHOLESTEROL 174 mg/dL (<200); LDL CHOLESTEROL 85 mg/dL (9-159); POTASSIUM 4.2 mmol/L (3.4-5.1); SGPT/ALT 12 U/L (5-49); TRIGLYCERIDES 165 mg/dl (<150)
[2024-02-19 08:29] LABS: VITAMIN D, 25-HYDROXY 44.1 ng/mL (30-100)
[2024-02-22 15:06] LABS: TESTOSTERONE FREE, (DIRECT) 1.1 pg/mL (0.0-4.2)
== END | disposition home or self-care (01) ==
LOC: LAB 07:01
PROVIDERS: ATTEND Nurse Practitioner Family
DX: R63.5 Abnormal weight gain (principal); E78.2 Mixed hyperlipidemia; Z78.0 Asymptomatic menopausal state

== ENCOUNTER → 2024-03-01 | Outpatient (CLI) | payer OTHER ==
[2024-03-01 17:15] LABS: BILIRUBIN Negative (Negative); BLOOD Negative (Negative); CLARITY Clear (Clear); COLOR Yellow (Yellow); GLUCOSE Negative (Negative); KETONE Negative (Negative); LEUKO ESTERASE Negative (Negative); NITRITE Negative (Negative); UROBILINOGEN 0.2 E.U./dl (0.0-1.0)
[2024-03-01 17:23] LABS: BASO % 0.3 % (0.0-1.0); EOS # 0.1 10*3/uL (0.0-0.4); EOS % 1.4 % (1.0-4.0); HEMATOCRIT 40.7 % (37.0-47.0); LYMPH % 29.5 % (27.0-41.0); MEAN CELL VOLUME 91.1 fl (81.0-99.0); MEAN CORPUSCULAR HGB 30.2 pg (27.0-31.0); MEAN CORPUSCULAR HGB CONC 33.2 g/dl (33.0-37.0); MEAN PLATELET VOLUME 10.3 fl (9.6-12.3); MONO # 0.4 10*3/uL (0.1-1.0); MONO % 4.3 % (3.0-9.0); NEUT # 6.5 10*3/uL (2.3-7.9); NEUT % 64.2 % (47.0-73.0); PLATELET COUNT AUTOMATED 206 10*3/uL (130-400); RED BLOOD COUNT 4.47 10*6/uL (4.10-5.10); RED CELL DISTRI WIDTH 12.7 % (0-14.5); WHITE BLOOD COUNT 10.1 10*3/uL (4.8-10.8)
[2024-03-01 17:25] LABS: RBC 0-2 rbc/hpf (0-2); WBC 0-2 wbc/hpf (0-5)
[2024-03-01 17:44] LABS: ALKALINE PHOSPHATASE 119 U/L (46-116); BUN 11 mg/dl (9-23); CHLORIDE 107 mmol/L (98-107); LIPASE 39 U/L (12-53); POTASSIUM 4.4 mmol/L (3.4-5.1); SGPT/ALT 10 U/L (5-49); TOTAL PROTEIN 7.1 gm/dL (6.0-8.0)
== END | disposition home or self-care (01) ==
LOC: LAB 17:05
PROVIDERS: ATTEND Nurse Practitioner Family
DX: R30.0 Dysuria (principal); R11.0 Nausea; M79.10 Myalgia, unspecified site

== ENCOUNTER → 2024-03-18 | Outpatient (CLI) | payer OTHER | END | disposition home or self-care (01) | LOC: US 01:48 | PROVIDERS: ATTEND Nurse Practitioner Family | DX: K76.0 Fatty (change of) liver, not elsewhere classified (principal); R14.0 Abdominal distension (gaseous); R10.13 Epigastric pain; Z98.890 Other specified postprocedural states ==

== ENCOUNTER → 2024-04-08 | Outpatient (CLI) | payer OTHER ==
[2024-04-08 15:58] LABS: ALKALINE PHOSPHATASE 125 U/L (46-116); GAMMA GLUTAMYL TRANSPEPTIDASE 16 U/L (0-73)
== END | disposition home or self-care (01) ==
LOC: LAB 00:16
PROVIDERS: ATTEND Nurse Practitioner Family
DX: R74.8 Abnormal levels of other serum enzymes (principal)

== ENCOUNTER → 2024-07-30 | Outpatient (CLI) | payer OTHER | END | disposition home or self-care (01) | LOC: LAB 08:15 | PROVIDERS: ATTEND Internal Medicine | DX: E55.9 Vitamin D deficiency, unspecified (principal); Z68.34 Body mass index [BMI] 34.0-34.9, adult ==

== ENCOUNTER → 2024-10-06 | Outpatient (CLI) | payer OTHER | END | disposition home or self-care (01) | LOC: US 03:00 | PROVIDERS: ATTEND Internal Medicine | DX: I73.9 Peripheral vascular disease, unspecified (principal) ==

== ENCOUNTER → 2024-10-07 | Outpatient (CLI) | payer OTHER | END | disposition home or self-care (01) | LOC: CARD 00:18 | PROVIDERS: ATTEND Internal Medicine | DX: I49.3 Ventricular premature depolarization (principal) ==

== ENCOUNTER → 2024-11-25 | Outpatient (CLI) | payer OTHER | END | disposition home or self-care (01) | LOC: LAB 07:09 | PROVIDERS: ATTEND Internal Medicine Cardiovascular Disease | DX: R00.2 Palpitations (principal) ==

== ENCOUNTER → 2024-12-20 | Outpatient (CLI) | payer OTHER, BC | END | disposition home or self-care (01) | LOC: CARD 11-29 08:30 | PROVIDERS: ATTEND Internal Medicine Cardiovascular Disease | DX: R00.2 Palpitations (principal) ==

== ENCOUNTER → 2024-12-23 | Outpatient (CLI) | payer OTHER, BC | END | disposition home or self-care (01) | LOC: RAD 02:31 | PROVIDERS: ATTEND Internal Medicine | DX: M48.07 Spinal stenosis, lumbosacral region (principal); M54.9 Dorsalgia, unspecified ==

== ENCOUNTER → 2024-12-30 | Outpatient (CLI) | payer OTHER, BC ==
[2024-12-30 07:49] LABS: BASO % 0.7 % (0.0-1.0); EOS # 0.2 10*3/uL (0.0-0.4); EOS % 3.4 % (1.0-4.0); HEMATOCRIT 40.5 % (37.0-47.0); MEAN CELL VOLUME 91.4 fl (81.0-99.0); MEAN CORPUSCULAR HGB 29.1 pg (27.0-31.0); MEAN CORPUSCULAR HGB CONC 31.9 g/dl (33.0-37.0); MEAN PLATELET VOLUME 10.1 fl (9.6-12.3); MONO # 0.4 10*3/uL (0.1-1.0); MONO % 6.7 % (3.0-9.0); NEUT # 3.1 10*3/uL (2.3-7.9); NEUT % 51.1 % (47.0-73.0); PLATELET COUNT AUTOMATED 198 10*3/uL (130-400); RED BLOOD COUNT 4.43 10*6/uL (4.10-5.10); RED CELL DISTRI WIDTH 13.2 % (0-14.5); WHITE BLOOD COUNT 6.1 10*3/uL (4.8-10.8)
[2024-12-30 08:50] LABS: ALKALINE PHOSPHATASE 94 U/L (46-116); BUN 11 mg/dl (9-23); CHLORIDE 106 mmol/L (98-107); CHOLESTEROL 254 mg/dL (<200); LDL CHOLESTEROL 154 mg/dL (9-159); POTASSIUM 4.4 mmol/L (3.4-5.1); SGPT/ALT 9 U/L (5-49); TOTAL PROTEIN 6.8 gm/dL (6.0-8.0); TRIGLYCERIDES 243 mg/dl (<150); VITAMIN D, 25-HYDROXY 31.9 ng/mL (30-100)
== END | disposition home or self-care (01) ==
LOC: LAB 07:02
PROVIDERS: ATTEND Internal Medicine
DX: E78.2 Mixed hyperlipidemia (principal); E55.9 Vitamin D deficiency, unspecified; E53.8 Deficiency of other specified B group vitamins; Z00.00 Encounter for general adult medical examination without abnormal findings

== ENCOUNTER → 2025-01-04 | Outpatient (CLI) | payer OTHER, BC | END | disposition home or self-care (01) | LOC: MRI 02:49 | PROVIDERS: ATTEND Internal Medicine | DX: M51.370 Other intervertebral disc degeneration, lumbosacral region with discogenic back pain only (principal); M54.51 Vertebrogenic low back pain ==

== ENCOUNTER → 2025-03-24 | Outpatient (CLI) | payer OTHER, BC ==
[2025-03-24 14:42] LABS: BASO # 0.1 10*3/uL (0.0-0.1); BASO % 0.7 % (0.0-1.0); EOS # 0.2 10*3/uL (0.0-0.4); EOS % 2.2 % (1.0-4.0); MEAN CELL VOLUME 91.8 fl (81.0-99.0); MEAN CORPUSCULAR HGB 29.7 pg (27.0-31.0); MEAN PLATELET VOLUME 10.0 fl (9.6-12.3); MONO # 0.4 10*3/uL (0.1-1.0); MONO % 5.6 % (3.0-9.0); NEUT # 3.7 10*3/uL (2.3-7.9); NEUT % 53.5 % (47.0-73.0); NUCLEATED RED BLOOD CELL 0.0 % (0.0-0.0); NUCLEATED RED BLOOD CELL 0.0 10*3/uL (0.0-0.0); PLATELET COUNT AUTOMATED 227 10*3/uL (130-400); RED CELL DISTRI WIDTH 12.8 % (0-14.5)
[2025-03-24 15:21] LABS: VITAMIN D, 25-HYDROXY 32.9 ng/mL (30-100)
== END ==
LOC: LAB 14:22
PROVIDERS: ATTEND Specialist
DX: K91.2 Postsurgical malabsorption, not elsewhere classified (principal)

== ENCOUNTER 2025-05-27 09:33 | Observation (INO) | payer OTHER, BC ==
[~2025-05-27] VITALS: Ht 167.6 cm; Wt 100.4 kg
[2025-05-27] MEDS ORDERED: IOHEXOL 350 MG/ML 100 ML VIAL IV ONE ×2 (09:45→10:06)
[2025-05-27] MEDS ORDERED: SODIUM CHLORIDE 0.9% 100 ML BAG IV ONE (09:45)
[2025-05-27 09:58] VITALS: BP 115/52
[2025-05-27] MEDS ORDERED: SODIUM CHLORIDE 0.9% 100 ML IV ONE (10:06)
[2025-05-27 10:12] LABS: BASO # 0.0 10*3/uL (0.0-0.1); BASO % 0.5 % (0.0-1.0); EOS # 0.1 10*3/uL (0.0-0.4); EOS % 2.2 % (1.0-4.0); MEAN CELL VOLUME 91.0 fl (81.0-99.0); MEAN CORPUSCULAR HGB 29.2 pg (27.0-31.0); MEAN PLATELET VOLUME 10.1 fl (9.6-12.3); MONO # 0.4 10*3/uL (0.1-1.0); MONO % 5.8 % (3.0-9.0); NEUT # 3.0 10*3/uL (2.3-7.9); NEUT % 49.9 % (47.0-73.0); NUCLEATED RED BLOOD CELL 0.0 % (0.0-0.0); NUCLEATED RED BLOOD CELL 0.0 10*3/uL (0.0-0.0); PLATELET COUNT AUTOMATED 198 10*3/uL (130-400); RED CELL DISTRI WIDTH 12.8 % (0-14.5)
[2025-05-27] MEDS ORDERED: ASPIRIN 325 MG TAB PO ONE (10:30)
[2025-05-27 10:35] LABS: BUN 10 mg/dl (9-23); CPK 48 U/L (34-171)
[2025-05-27 11:48] VITALS: BP 115/58
[2025-05-27] MEDS ORDERED: Acetaminophen/Hydrocodone 5 MG/325 MG TABLET PO PRN (13:30)
[2025-05-27] MEDS ORDERED: BISACODYL 5 MG TAB PO PRN (13:30)
[2025-05-27] MEDS ORDERED: TEMAZEPAM 15 MG CAP PO PRN (13:30)
[2025-05-27 13:40] VITALS: BP 93/60
[2025-05-27 13:45] LABS: BILIRUBIN Negative (Negative); BLOOD Negative (Negative); CLARITY Clear (Clear); COLOR Yellow (Yellow); KETONE Negative (Negative); LEUKO ESTERASE Negative (Negative); NITRITE Negative (Negative); PH 5.5 (4.5-8.0); SPECIFIC GRAVITY >= 1.030 (1.001-1.030); UROBILINOGEN 0.2 E.U./dl (0.0-1.0)
[2025-05-27 14:14] LABS: BACTERIA TRACE; RBC 0-2 rbc/hpf (0-2)
[2025-05-27] MEDS ORDERED: ATORVASTATIN CALCIUM 20 MG TAB PO SCH (14:35)
[2025-05-27 16:00] VITALS: BP 106/49
[2025-05-27 20:00] VITALS: BP 95/53
[2025-05-27] MEDS ORDERED: ACETAMINOPHEN 325 MG TAB PO PRN (21:25)
[2025-05-27] MEDS ORDERED: CALCIUM (TUMS) 500MG PO PRN (21:25)
[2025-05-28] VITALS: BP 92/55
[2025-05-28 08:00] VITALS: BP 110/50
[2025-05-28] MEDS ORDERED: ATORVASTATIN CA20 M1 PO (11:48)
[2025-05-28 12:00] VITALS: BP 108/76
[2025-05-28] MEDS ORDERED: MAGNESIUM400 M1 PO (12:56)
== END 2025-05-28 12:52 | disposition home or self-care (01) ==
LOC: ED 09:33 → 5E 12:30 → EDHOLD 12:30 → 5E 13:17
PROVIDERS: Emergency Medicine; ADMIT Internal Medicine; ATTEND Internal Medicine
DX: G45.9 Transient cerebral ischemic attack, unspecified (principal); E66.9 Obesity, unspecified; G43.909 Migraine, unspecified, not intractable, without status migrainosus; R00.1 Bradycardia, unspecified; R73.9 Hyperglycemia, unspecified; E78.2 Mixed hyperlipidemia; Z68.34 Body mass index [BMI] 34.0-34.9, adult; Z79.899 Other long term (current) drug therapy; Z98.890 Other specified postprocedural states

== ENCOUNTER → 2025-06-21 | Outpatient (CLI) | payer OTHER, BC ==
[~2025-06-21] MED LIST changes: +ATORVASTATIN CA20 M1 PO; +MAGNESIUM400 M1 PO
[2025-06-21 08:30] LABS: BUN 16 mg/dl (9-23); LDL CHOLESTEROL 116 mg/dL (9-159); SGPT/ALT 9 U/L (5-49)
== END | disposition home or self-care (01) ==
LOC: LAB 07:05
PROVIDERS: ATTEND Family Medicine
DX: E78.5 Hyperlipidemia, unspecified (principal)